=== PATIENT | male | born 1940 | race Caucasian/White ===

== ENCOUNTER → 2017-05-08 | Outpatient (CLI) | payer MEDICARE ==
[~2017-05-08] MED LIST: ASPIRIN81 MG PO; BENADRYL25 M1 PO; LEVETIRACETAM750 MG PO; METOPROLOL SUCC25 MG PO; OMEPRAZOLE20 M1 PO; PRAVASTATIN SOD20 MG PO; SULFAMETHOXAZO1 EAC1 PO
--- NOTE | 2017-05-08 14:41 | Diagnostic Imaging Report ---
PROCEDURE:SP LUMBAR, COMPLETE MIN 4VW TECHNIQUE:AP, lateral, bilateral oblique and coned down views lumbar spine INDICATION:Back pain; numb feet COMPARISON:None. FINDINGS: 5 [id number] lumbar vertebral bodies. Vertebral body height is maintained. Mild disc space narrowing from L1-S1 with degenerative changes at the endplates and associated marginal osteophytosis. Bilateral facet arthropathy from L1-L2 through L5-S1 without pars defects or listhesis. Lumbar scoliosis which may be secondary to degenerative change, positioning, muscle spasm or inherent alignment. Normal bowel gas pattern. Atherosclerosis of the abdominal aorta and iliac arteries. CONCLUSION: Multilevel degenerative disc disease and facet arthropathy from L1-S1 without gross neural foramen stenosis. There is a scoliosis which may be secondary to chronic degenerative change, muscle spasm, and/or positioning which does limit evaluation for neural foramen stenosis. Dictated by: Shon Edmondson M.D. on 05/08/2017 at 14:49 Electronically approved by: Shon Edmondson M.D. on 05/08/2017 at 14:49
--- NOTE | 2017-05-08 14:45 | Diagnostic Imaging Report ---
PROCEDURE:C-SPINE COMPLETE COMPARISON:None. INDICATIONS:NECK PAIN CHRONIC FINDINGS: The vertebral bodies can be visualized to C6. The bones are diffusely demineralized. There is moderate height loss, endplate osteophytic lipping and associated disc space narrowing of C4-5 and C5-6. There is mild reversal of the normal lordosis with the apex at C4-5. The prevertebral soft tissues on lateral image are obscured due to dense calcifications of the carotid arteries. Alignment is maintained on AP image. The right oblique view is suboptimal. Mild diffuse foraminal narrowing is present. The lateral masses of C1 are symmetric. The C1-2 articulation is normal. The skull base is unremarkable. There is aortic ectasia. The visualized lung zones are clear. CONCLUSION: Degenerative changes of the cervical spine most severe at C4-5 and C5-6 with reversal of the normal lordosis at C4-5. Diffuse carotid artery calcifications. Recommend evaluation of the carotid arteries with ultrasound. Dictated by: Elsa Mora M.D. on 05/08/2017 at 14:53 Electronically approved by: Elsa Mora M.D. on 05/08/2017 at 14:53
== END ==
LOC: RAD 13:19
DX: M54.2 Cervicalgia (principal); M54.5 Low back pain
CPT/HCPCS: 72050; 72110

== ENCOUNTER → 2017-05-23 | Outpatient (CLI) | payer MEDICARE ==
--- NOTE | 2017-05-26 07:27 | Diagnostic Imaging Report ---
Exam: Lumbar spine MRI without IV contrast History: Low back pain Comparison studies: Lumbar spine x-ray 05/08/2017. Technique: Sagittal and axial T2 , sagittal T1 and IR, axial spin density oblique. Intravenous contrast: None Findings: Number of lumbar vertebral bodies: 5. Alignment: Lumbar curvature convex to the left centered at L3-L4. Normal lumbar lordotic curvature Soft tissues: No T2 hyperintense inflammatory changes. Paraspinal muscles: Mild symmetric atrophy. Lower thoracic cord: Normal in signal and morphology. The tip of the conus is at T12-L1. Cauda equina: No masses. No arachnoiditis. Vertebrae: No compression fractures, infection or neoplasm. Degenerative changes: L1-L2: Mildly degenerated disc with mild loss of disc height and loss of T2 signal. Disc bulge indents the thecal sac but does not result in and out stenosis. Patent foramina. L2-L3: Mildly degenerated disc. Disc bulge, slightly asymmetric to the left with annular fissure indents the thecal sac but does not result in significant canal stenosis. No significant foraminal stenosis. L3-L4: Mildly degenerated disc. Disc bulge, thickened ligamentum flavum, moderate right and mild left facet arthrosis and right foraminal disc osteophyte complex result in mild canal stenosis and mild bilateral foraminal stenosis. Small extraspinal synovial cysts on the left. L4-L5: Mildly degenerated disc. Disc bulge with central annular fissure, thickened ligamentum flavum and moderate right and mild left facet arthrosis. Result in mild canal and bilateral foraminal stenosis. L5-S1: Mildly degenerated disc. Disc bulge with small left central disc protrusion and annular fissure and mild right and moderate left facet arthrosis do not result in significant canal or foraminal stenosis. Incidental findings: Multiple small calcified gallstones within the gallbladder. Multiple T2 hyperintense lesions within both kidneys may represent cysts, but are inadequately evaluated on this exam. Renal ultrasound could further evaluate if not previously performed. IMPRESSION: 1. Mild lumbar levocurvature centered at L3-L4. 2. Mildly degenerated disks from L1 to S1 with small annular fissures at L2-L3, at L4-L5 and at L5-S1. 3. Mild degenerative foraminal stenosis at L3-L4 and at L4-L5. 4. Facet arthrosis from L3 to S1. Signed by: Dr. Vic Saravia M.D. on 05/26/2017 7:23 AM
== END ==
LOC: MRI 08:44
DX: M43.8X6 Other specified deforming dorsopathies, lumbar region (principal)
CPT/HCPCS: 72148

== ENCOUNTER 2017-08-21 09:00 | Outpatient (RCR) | payer MEDICARE | END 2017-08-25 | LOC: PT 09:00 | PROVIDERS: ATTEND Neurological Surgery | DX: M48.061 Spinal stenosis, lumbar region without neurogenic claudication (principal) | CPT/HCPCS: 97110; 97161; G8984; G8985 ==

== ENCOUNTER 2017-08-28 10:00 | Outpatient (RCR) | payer MEDICARE | END 2017-09-25 | LOC: PT 10:00 | PROVIDERS: ATTEND Neurological Surgery | DX: M48.061 Spinal stenosis, lumbar region without neurogenic claudication (principal) ==